=== PATIENT | male | born 1980 | race Caucasian/White ===

== ENCOUNTER 2023-06-08 13:49 | Observation (INO) | payer OTHER ==
[2023-06-08 14:48] LABS: #Monocytes 0.8 thou/uL (0.11-0.59); %Basophils 0.1 % (0.0-1.0); %Lymphocytes 8.6 % (21.0-51.0); %Monocytes 9.2 % (0.0-10.0); %Neutrophils 81.9 % (42.0-75.0); Hematocrit 42.1 % (42.0-52.0); Hemoglobin 14.8 g/dL (14.0-18.0); Mean Corpuscular HGB CONC 35.2 g/dL (32.0-36.0); Mean Corpuscular Hemoglobin 28.8 pg (27.0-31.0); Mean Corpuscular Volume 81.9 fl (78.0-98.0); Mean Platelet Volume 8.9 fL (7.4-10.4); Platelet Count 231 10x3/uL (130-400); RBC Distribution Width 13.2 % (11.5-14.5); Red Blood Cell (RBC) Count 5.14 mill/uL (4.70-6.10); White Blood Cell (WBC) Count 8.5 10x3/uL (4.8-10.8)
[2023-06-08] MEDS ORDERED: Acetaminophen 325 MG TAB ONE (14:59)
[2023-06-08] MEDS ORDERED: Sodium Chloride 0.9% 100 ML ONE (15:00)
[2023-06-08] MEDS ORDERED: cefTRIAXone (ROCEPHIN) 2 GM VIAL ONE (15:00)
[2023-06-08] MEDS ORDERED: Ondansetron PF 4 MG/2 ML Vial ONE (15:00)
[2023-06-08] MEDS ORDERED: Ketorolac Tromethamine 30 MG (1 mL) VIAL ONE (15:00)
[2023-06-08 15:25] LABS: ALT (SGPT) 33 U/L (8-55); AST (SGOT) 21 U/L (5-34); Albumin 4.3 g/dL (3.5-5.0); Alkaline Phosphatase 105 U/L (40-110); Anion Gap 13 mmol/L (10-20); BUN (Urea Nitrogen) 13 mg/dL (8.9-20.6); Bilirubin, Total 0.8 mg/dL (0.2-1.2); Calc. Creatinine Clearance 0 mL/min (70-130); Calcium 10.7 mg/dL (7.8-10.44); Carbon Dioxide 22 mmol/L (22-29); Chloride 100 mmol/L (98-107); Estimated GFR 71; Globulin 3.6 g/dL (2.4-3.5); Glucose 114 mg/dL (70-105); Potassium 3.1 mmol/L (3.5-5.1); Protein, Total 7.9 g/dL (6.0-8.3); Sodium 132 mmol/L (136-145)
[2023-06-08 16:49] LABS: Bacteria/HPF 4+ HPF (None Seen); Bilirubin Negative (Negative); Blood, Urine 2+ (Negative); CAUTI Indications for Culture Dysuria,urgency,freq; Clarity Turbid (Clear); Glucose, Urine (Dipstick) Normal (Negative); Ketone, Urine Negative (Negative); Leukocyte 500 Leu/uL (Negative); Nitrite Negative (Negative); Protein, Urine (Dipstick) 10 mg/dL (Neg-Trace); Specific Gravity, Urine 1.007 (1.002-1.036); Squamous Epithelial None Seen HPF (0-3); Urobilinogen Normal mg/dL (Less than 2); WBC/HPF Greater than 50 HPF (0-3)
[2023-06-08 17:04] LABS: Urine Culture Reflex Yes Yes
[2023-06-08] MEDS ORDERED: Ondansetron PF 4 MG/2 ML Vial IVP PRN (18:39)
[2023-06-08] MEDS ORDERED: Tamsulosin HCl 0.4 MG CAP ONE (18:52)
[2023-06-08 20:21] LABS: Magnesium 1.4 mg/dL (1.6-2.6)
[2023-06-08 20:36] VITALS: BMI 35.8
[2023-06-08] MEDS: Vancomycin 2.5 GM Sodium Chloride 0.9% 500 ML IVPB SCH (20:36)
[2023-06-08] MEDS: Sodium Chloride 0.9% 1,000 ML IV SCH (20:44)
[2023-06-08] MEDS: Acetaminophen 325 MG TAB PO PRN (20:45)
[2023-06-08] MEDS: Potassium Chloride 20 MEQ TAB PO SCH (20:45)
[2023-06-09] MEDS: Magnesium Sulfate 3 GM in Sodium Chloride 0.9% 100 ML IVPB SCH (04:50)
[2023-06-09 06:50] LABS: #Monocytes 0.8 thou/uL (0.11-0.59); #Neutrophils 4.9 thou/uL (1.40-6.50); %Basophils 0.3 % (0.0-1.0); %Eosinophils 0.1 % (0.0-10.0); %Lymphocytes 17.1 % (21.0-51.0); %Monocytes 11.1 % (0.0-10.0); Hematocrit 38.7 % (42.0-52.0); Mean Corpuscular HGB CONC 33.6 g/dL (32.0-36.0); Mean Corpuscular Hemoglobin 27.8 pg (27.0-31.0); Mean Corpuscular Volume 82.7 fl (78.0-98.0); Mean Platelet Volume 9.3 fL (7.4-10.4); Platelet Count 188 10x3/uL (130-400); RBC Distribution Width 13.3 % (11.5-14.5); Red Blood Cell (RBC) Count 4.68 mill/uL (4.70-6.10); White Blood Cell (WBC) Count 6.9 10x3/uL (4.8-10.8)
[2023-06-09 07:02] LABS: Anion Gap 12 mmol/L (10-20); BUN (Urea Nitrogen) 11 mg/dL (8.9-20.6); Carbon Dioxide 21 mmol/L (22-29); Chloride 108 mmol/L (98-107); Potassium 3.3 mmol/L (3.5-5.1); Sodium 138 mmol/L (136-145)
[2023-06-09 07:03] LABS: Calc. Creatinine Clearance 215 mL/min (70-130); Calcium 9.3 mg/dL (7.8-10.44); Estimated GFR 109; Glucose 122 mg/dL (70-105)
[2023-06-09 09:20] LABS: Magnesium 2.8 mg/dL (1.6-2.6)
[2023-06-09] MEDS: Potassium Chloride 20 MEQ TAB PO SCH (13:55)
[2023-06-09 14:03] VITALS: BP 140/83; TEMP 99.3
[2023-06-09] MEDS ORDERED: cefTRIAXone\\ROCEPHIN 1 GM in Sodium Chloride 0.9% 100 ML IVPB SCH (15:00)
[2023-06-10] MEDS ORDERED: Tamsulosin HCl 0.4 MG CAP PO SCH (09:00)
== END 2023-06-09 14:01 | disposition home or self-care (01) ==
LOC: ERS 13:49 → T4-B 18:40
PROVIDERS: ADMIT Family Medicine; ATTEND Internal Medicine
DX: N20.1 Calculus of ureter (principal); E21.3 Hyperparathyroidism, unspecified; E66.9 Obesity, unspecified; E87.6 Hypokalemia; Z88.0 Allergy status to penicillin; Z79.899 Other long term (current) drug therapy; Z68.35 Body mass index [BMI] 35.0-35.9, adult
CPT/HCPCS: 36415; 71045; 74176; 76770; 80048; 80053; 81001; 83605; 83735; 85025; 87040; 87077; 87086; 87186; 96365; 96366; 96367; 96375; G0378; J0696; J1885; J2405; J3370; J3475; J3490; J7030; J7050

== ENCOUNTER 2024-02-21 07:23 | Outpatient (CLI) | payer OTHER ==
[2024-02-21] MEDS ORDERED: Iopamidol 370 76% 100 ML VIAL ONE (12:24)
== END 2024-02-21 07:24 | disposition home or self-care (01) ==
LOC: CT 07:23
PROVIDERS: ATTEND Otolaryngology Otolaryngic Allergy
DX: E21.0 Primary hyperparathyroidism (principal)
CPT/HCPCS: 36415; 70492; 78072; 82565; A9500